=== PATIENT | male | born 1965 | race Caucasian/White ===

== ENCOUNTER 2023-07-25 07:32 | Outpatient (CLI) | payer OTHER, SELFPAY ==
--- NOTE | ~2023-07-25 | US_ITS ---
Limited Abdominal Sonogram: Real-time sonographic imaging of the right upper quadrant was performed. Clinical History: Abnormal findings of blood chemistry Findings: The liver appears echogenic, with no evidence of mass lesion or bile duct dilatation. Main portal vein demonstrates normal direction of flow. The gallbladder is well distended, and appears no rmal with no evidence of gallstone or wall thickening. The common bile duct measures 5 mm. The visua lized pancreas, aorta, and IVC are unremarkable. Impression: Diffuse fatty infiltration of the liver. Reviewed, dictated and finalized at location M. RTISING DISPLAY ROTATOR Impression: Diffuse fatty infiltration of the liver.
== END 2023-07-25 07:33 | disposition home or self-care (01) ==
PROVIDERS: PCP Physician Assistant Medical; Visit Provider Physician Assistant Medical
DX: K76.0 Fatty (change of) liver, not elsewhere classified (principal); R79.89 Other specified abnormal findings of blood chemistry
CPT/HCPCS: 76705

== ENCOUNTER 2025-05-13 06:33 | Outpatient (CLI) | payer OTHER, SELFPAY ==
--- NOTE | ~2025-05-13 | MR_ITS ---
EXAM/PROCEDURE: MR pelvis wo/w con HISTORY: MALIGNANT NEOPLASM OF PROSTATE COMPARISON: None available. TECHNIQUE: Standard technique for prostate MRI performed. FINDINGS: The prostate measures 4.5 x 6.2 x 6.5 cm in length times width times height. Cubic volume of approximately 95 cc. Based on PSA level of 10.0, PSA density is approximately 0.11. Glandular acinar and nodular changes noted with no discrete lesion or mass identified on T2-weighted sequences. The peripheral zone is diffusely hypointense on T2-weighted sequences from the mid gland through the apex, particularly involving the lateral and posterior portions. No discretely defined lesion seen. No compelling restricted diffusion identified. Heterogeneous enhancement with no clearly dominant or early focus of enhancement. The perirectal and periprostatic planes appear preserved. The rectal prostate plane is intact. Seminal vesicles appear normal. No evidence of metastatic disease in the bones seen. No gross lymphadenopathy. IMPRESSION: Abnormal appearance of the peripheral zone on both sides from the mid base to the apex with no compelling restricted diffusion or abnormal enhancement pattern. MRI findings consistent with PI-RADS COMMENT: Concern for malignancy increases if elevated PSA level has significant velocity; if biopsy is not performed, repeat pelvic/prostate ultrasound in 6 months recommended. Reviewed, dictated and finalized at location A. TELLER IMPRESSION: Abnormal appearance of the peripheral zone on both sides from the mid base to t he apex with no compelling restricted diffusion or abnormal enhancement pattern . MRI findings consistent with PI-RADS COMMENT: Concern for malignancy increases if elevated PSA level has significant velocity; if biopsy is not performed, repeat pelvic/prostate ultrasound in 6 m [address] recommended.
== END 2025-05-13 06:34 | disposition home or self-care (01) ==
PROVIDERS: PCP Physician Assistant Medical; Visit Provider Radiology Radiation Oncology
DX: C61 Malignant neoplasm of prostate (principal)
CPT/HCPCS: 72197; A9577